=== PATIENT | male | born 1955 | race American Indian/Alaskan Native ===

== ENCOUNTER 2016-04-06 13:03 | Outpatient (RCR) | payer MEDICARE ==
[~2016-04-06 13:03] MED LIST: ACET500C4 PO; ACHD5005 PO; ASP81CT PO; ASP81TEC PO; HCT25T PO; HYDR-34 PO; INDO25CA PO; LEVO500T78 PO; LNZ600T PO; LSNP20T PO; METO25TA PO; ONDA-43 PO; PNT40TEC PO; PROB500T8 PO; TRM50T PO
--- OUTSIDE RECORDS SUMMARY | 2016-04-06 13:06 | XMS REPORT | Continuity of Care Document ---
Author Author [facility] Organization [facility] Address Unknown Phone Unavailable Support Name Relationship Address Phone CAITY BRANDON Caregiver [address] [place] [address] SAMARIA SCHOFIELD MD Caregiver [address] [place] [address] JENNI HAMPTONE Next Of Kin [address] [place], [place] [id number] Insurance Providers Payer Name Policy Number Subscriber Name Relationship Wps Medicare [id number] Jevon Hampton 18 Self / Same As Patient Self Pay Pending [facility] Apprv [id number] Jevon Hampton 18 Self / Same As Patient Advance Directives Directive Response Recorded Date/Time Advance Directives No 08/03/12 4:38pm Health Care Power of Turning And Beading Machine Operator No 08/03/12 4:38pm Organ Donor No 08/03/12 4:38pm Problems No known problems or medical conditions. Medications Medication Dose Route Sig Days/Qty Instructions Order Date Discontinued Date Status Metoprolol Succinate 25 Mg PO TWICE A DAY 10/31/10 05/01/12 Discontinued Indomethacin 50 Mg PO THREE TIMES A DAY PRN 10/31/10 05/01/12 Discontinued Hydrochlorothiazide 1 Each PO DAILY 10/31/10 05/01/12 Discontinued Aspirin 81 Mg PO DAILY 03/03/11 05/01/12 Discontinued Aspirin 81 Mg PO DAILY 05/01/12 Active Lisinopril 20 Mg PO DAILY 05/01/12 Active Probenecid 500 Mg PO DAILY 05/14/12 Active Pantoprazole Sod 40 Mg PO DAILY 05/14/12 07/04/12 Discontinued Acetaminophen 500 Mg PO NEEDED FOR PAIN 07/04/12 Active Ondansetron 8 Mg PO NEEDED 07/04/12 Active Levofloxacin 500 Mg PO DAILY 07/04/12 07/20/12 Discontinued Linezolid 600 Mg PO TWICE A DAY 07/17/12 07/20/12 Discontinued Acetaminophen/Hydrocodone Bitart 1 - 2 Tab PO Q4-6 PRN 07/20/12 Active Tramadol HCl 50 Mg PO EVERY 4HRS PRN 07/20/12 Active Social History Social History Problem Response Recorded Date/Time Alcohol Use Denies Use 07/17/2012 1:35pm Recreational Drug Use No 07/17/2012 1:35pm Recent Foreign Travel No 07/17/2012 1:35pm Recent Infectious Disease Exposure No 07/17/2012 1:35pm Hospitalization with Isolation Denies 07/20/2012 11:04am Sexually Transmitted Disease No 07/17/2012 1:35pm Hospital Discharge Instructions No hospital discharge instructions. Plan of Care No plan of care. Functional Status No functional status results. Allergies, Adverse Reactions, Alerts Allergen Type Severity Reaction Status Last Updated Allopurinol Adverse Reaction Active 05/01/12 indomethacin ([id number]) Allergy HIVES Active 07/04/12 Immunizations No immunization records. Vital Signs No known vital signs results. Results Laboratory Results Test Name Result Units Flags Reference Collection Date/Time Result Date/ Time Comments White Blood Count 5.0 10^3/uL 4.3-11.0 09/24/2014 10:02am 09/24/2014 10 :08am Red Blood Count 4.59 10^6/uL 4.35-5.85 09/24/2014 10:02am 09/24/2014 10 :08am Hemoglobin 14.6 G/DL 13.3-17.7 09/24/2014 10:02am 09/24/2014 10:08am Hematocrit 43 % 40-54 09/24/2014 10:02am 09/24/2014 10:08am Mean Corpuscular Volume 94 FL 80-99 09/24/2014 10:02am 09/24/2014 10: 08am Mean Corpuscular Hemoglobin 32 PG 25-34 09/24/2014 10:02am 09/24/2014 10:08am Mean Corpuscular Hemoglobin Concent 34 G/DL 32-36 09/24/2014 10:02am 10:08am Red Cell Distribution Width 13.3 % 10.0-14.5 09/24/2014 10:02am 2014 10:08am Platelet Count 200 10^3/uL 130-400 09/24/2014 10:0209/24/2014 10: 08am Mean Platelet Volume 9.9 FL 7.4-10.4 09/24/2014 10:0209/24/2014 10: 08am Neutrophils (%) (Auto) 52 % 42-75 09/24/2014 10:02am 09/24/2014 10: 08am Lymphocytes (%) (Auto) 36 % 12-44 09/24/2014 10:02am 09/24/2014 10: 08am Monocytes (%) (Auto) 10 % 0-12 09/24/2014 10:02am 09/24/2014 10:08am Eosinophils (%) (Auto) 2 % 0-10 09/24/2014 10:02am 09/24/2014 10:08am Basophils (%) (Auto) 1 % 0-10 09/24/2014 10:am 09/24/2014 10:08am Neutrophils # (Auto) 2.6 X 10^3 1.8-7.8 09/24/2014 10:02am 09/24/2014 10:08am Lymphocytes # (Auto) 1.8 X 10^3 1.0-4.0 09/24/2014 10:02am 09/24/2014 10:08am Monocytes # (Auto) 0.5 X 10^3 0.0-1.0 09/24/2014 10:02am 09/24/2014 10: 08am Eosinophils # (Auto) 0.1 10^3/uL 0.0-0.3 09/24/2014 10:02am 09/24/2014 10:08am Basophils # (Auto) 0.0 10^3/uL 0.0-0.1 09/24/2014 10:02am 09/24/2014 10 :08am Erythrocyte Sedimentation Rate 29 MM/HR 0-30 09/24/2014 10:022014 10:51am Sodium Level 138 MMOL/L 135-145 09/24/2014 10:0209/24/2014 10:39am Potassium Level 4.2 MMOL/L 3.6-5.0 09/24/2014 10:02am 09/24/2014 10: 39am Chloride Level 106 MMOL/L 98-107 09/24/2014 10:0209/24/2014 10:39am Carbon Dioxide Level 21 MMOL/L 21-32 09/24/2014 10:0209/24/2014 10: 39am Blood Urea Nitrogen 11 MG/DL 7-18 09/24/2014 10:0209/24/2014 10: 39am Creatinine 1.33 MG/DL H 0.60-1.30 09/24/2014 10:02am 09/24/2014 10:39am BUN/Creatinine Ratio 8 09/24/2014 10:02am 09/24/2014 10:39am Estimat Glomerular Filtration Rate 55 09/24/2014 10:022014 10:39am GFR INTERPRETIVE DATA UNITS FOR ESTIMATED GFR (eGFR): mL/min/1.73 M2 REFERENCE RANGE FOR ESTIMATED GFR (eGFR) eGFR NORMAL eGFR >60 MODERATELY DECREASED eGFR 30-59 SEVERLY DECREASED eGFR 15-29 KIDNEY FAILURE <15 (OR DIALYSIS) Glucose Level 126 MG/DL H 70-105 09/24/2014 10:02am 09/24/2014 10:39am Calcium Level 9.6 MG/DL 8.5-10.1 09/24/2014 10:0209/24/2014 10:39am Total Bilirubin 1.0 MG/DL 0.1-1.0 09/24/2014 10:02am 09/24/2014 10: 39am Alkaline Phosphatase 72 U/L 40-136 09/24/2014 10:02am 09/24/2014 10: 39am Aspartate Amino Transf (AST/SGOT) 44 U/L H 5-34 09/24/2014 10:02am 2014 10:39am Alanine Aminotransferase (ALT/SGPT) 34 U/L 0-55 09/24/2014 10:0207/2014 10:39am Lactate Dehydrogenase 189 U/L 125-220 09/24/2014 10:02am 09/24/2014 10: 39am Total Protein 7.4 G/DL 6.4-8.2 09/24/2014 10:0209/24/2014 10:39am Albumin 4.1 G/DL 3.2-4.5 09/24/2014 10:02am 09/24/2014 10:39am Procedures No known history of procedures. Encounters Encounter Location Date/Time Discharged Recurring Via [facility] 09/24/14 9:41am
[2016-04-06 13:27] LABS: BASOPHILS % (AUTO) 0 % (0-10); EOSINOPHILS # (AUTO) 0.2 10^3/uL (0.0-0.3); EOSINOPHILS % (AUTO) 3 % (0-10); LYMPHOCYTES # (AUTO) 2.2 X 10^3 (1.0-4.0); LYMPHOCYTES % (AUTO) 38 % (12-44); MEAN CORPUSCULAR HEMOGLOBIN 32 PG (25-34); MEAN CORPUSCULAR HGB CONC 34 G/DL (32-36); MEAN CORPUSCULAR VOLUME 95 FL (80-99); MEAN PLATELET VOLUME 9.8 FL (7.4-10.4); MONOCYTES # (AUTO) 0.6 X 10^3 (0.0-1.0); MONOCYTES % (AUTO) 10 % (0-12); NEUTROPHILS # (AUTO) 2.8 X 10^3 (1.8-7.8); NEUTROPHILS % (AUTO) 49 % (42-75); PLATELET COUNT 200 10^3/uL (130-400); RED BLOOD COUNT 4.57 10^6/uL (4.35-5.85); WHITE BLOOD COUNT 5.8 10^3/uL (4.3-11.0)
[2016-04-06 13:58] LABS: ERYTHROCYTE SEDIMENTATION RATE 35 MM/HR (0-30)
[2016-04-06 14:00] LABS: ALANINE AMINOTRANSFERASE 37 U/L (0-55); ALBUMIN 3.9 G/DL (3.2-4.5); ANION GAP 8 MMOL/L (5-14); ASPARTATE AMINO TRANSFERASE 30 U/L (5-34); BILIRUBIN,TOTAL 0.4 MG/DL (0.1-1.0); BLOOD UREA NITROGEN 11 MG/DL (7-18); BUN/CREATININE RATIO 9; CALCIUM 9.4 MG/DL (8.5-10.1); CARBON DIOXIDE 26 MMOL/L (21-32); CHLORIDE 107 MMOL/L (98-107); GFR ESTIMATED > 60; GLUCOSE 114 MG/DL (70-105); LACTATE DEHYDROGENASE 208 U/L (125-220); POTASSIUM 5.2 MMOL/L (3.6-5.0); SODIUM 141 MMOL/L (135-145); TOTAL PROTEIN 7.2 G/DL (6.4-8.2)
== END 2016-07-05 | disposition home or self-care (01) ==
LOC: ONC 13:03
PROVIDERS: ATTEND Internal Medicine Hematology & Oncology
DX: C81.90 Hodgkin lymphoma, unspecified, unspecified site (principal); Z79.899 Other long term (current) drug therapy
CPT/HCPCS: 36415; 80053; 83615; 85025; 85652; 99213

== ENCOUNTER → 2016-07-21 | Outpatient (CLI) | payer MEDICARE ==
--- OUTSIDE RECORDS SUMMARY | 2016-07-21 09:11 | XMS REPORT | Continuity of Care Document ---
Author Author [facility] Organization [facility] Address Unknown Phone Unavailable Support Name Relationship Address Phone CAITY BRANDON Caregiver [address] [place] [address] SAMARIA SCHOFIELD MD Caregiver [address] [place] [address] JENNI HAMPTONE Next Of Kin [address] [place], [place] [id number] Insurance Providers Payer Name Policy Number Subscriber Name Relationship Wps Medicare [id number] Jevon Hampton 18 Self / Same As Patient Self Pay Pending [facility] Apprv [id number] Jevon Hampton 18 Self / Same As Patient Advance Directives Directive Response Recorded Date/Time Advance Directives No 08/03/12 4:38pm Health Care Power of Piano Mover No 08/03/12 4:38pm Organ Donor No 08/03/12 [...] Updated Allopurinol Adverse Reaction Active 05/01/12 indomethacin ([id number]) Allergy HIVES Active 07/04/12 Immunizations No immunization [...] Encounters Encounter Location Date/Time Discharged Recurring Via [facility] 09/24/14 9:41am
[2016-07-21 10:10] LABS: ALANINE AMINOTRANSFERASE 34 U/L (0-55); ANION GAP 10 MMOL/L (5-14); ASPARTATE AMINO TRANSFERASE 29 U/L (5-34); BILIRUBIN,TOTAL 0.6 MG/DL (0.1-1.0); BLOOD UREA NITROGEN 14 MG/DL (7-18); BUN/CREATININE RATIO 12; CALCIUM 9.2 MG/DL (8.5-10.1); CARBON DIOXIDE 24 MMOL/L (21-32); CHLORIDE 106 MMOL/L (98-107); CHOLESTEROL 171 MG/DL (< 200); CREATININE SERUM 1.17 MG/DL (0.60-1.30); DIRECT LDL 99 MG/DL (1-129); GFR ESTIMATED > 60; GLUCOSE 114 MG/DL (70-105); POTASSIUM 4.1 MMOL/L (3.6-5.0); SODIUM 140 MMOL/L (135-145); TOTAL PROTEIN 7.2 G/DL (6.4-8.2); TRIGLYCERIDES 304 MG/DL (<150); VLDL CHOLESTEROL 61 MG/DL (5-40)
== END ==
LOC: LAB 09:07
PROVIDERS: ATTEND Internal Medicine Cardiovascular Disease
DX: R07.9 Chest pain, unspecified (principal); I10 Essential (primary) hypertension; R06.02 Shortness of breath; Z82.49 Family history of ischemic heart disease and other diseases of the circulatory system
CPT/HCPCS: 36415; 80053; 80061

== ENCOUNTER → 2016-07-24 | Outpatient (CLI) | payer MEDICARE, OTHER ==
--- OUTSIDE RECORDS SUMMARY | 2016-07-24 13:37 | XMS REPORT | Continuity of Care Document ---
Author Author [facility] Organization [facility] Address Unknown Phone Unavailable Support Name Relationship Address Phone CAITY BRANDON Caregiver [address] [place] [address] SAMARIA SCHOFIELD MD Caregiver [address] [place] [address] JENNI HAMPTONE Next Of Kin [address] [place], [place] [id number] Insurance Providers Payer Name Policy Number Subscriber Name Relationship Wps Medicare [id number] Jevon Hampton 18 Self / Same As Patient Self Pay Pending [facility] Apprv [id number] Jevon Hampton 18 Self / Same As Patient Advance Directives Directive Response Recorded Date/Time Advance Directives No 08/03/12 4:38pm Health Care Power of Junior Data Analyst No 08/03/12 4:38pm Organ Donor No 08/03/12 [...] Updated Allopurinol Adverse Reaction Active 05/01/12 indomethacin ([id number]) Allergy HIVES Active 07/04/12 Immunizations No immunization [...] Encounters Encounter Location Date/Time Discharged Recurring Via [facility] 09/24/14 9:41am
--- NOTE | 2016-07-26 08:57 | ECHOCARDIOGRAPHY REPORT ---
PROCEDURE PHYSICIAN: ROLANDA POLLOCK DATE OF PROCEDURE: 07/24/2016 TWO DIMENSIONAL ECHOCARDIOGRAM REPORT PRIMARY PHYSICIAN: OTHER PHYSICIAN: REFERRING PHYSICIAN: Dr. Trudy Neely ORDERING PHYSICIAN: INDICATION FOR THE PROCEDURE: MEASUREMENTS DERIVED VALUES LV DIAMETER (LAX) NORMALS NORMALS Diastolic 5.1 (3.6-5.2) Eject. Fract. 60% (60%+/-6%) Systolic (2.3-3.9) Diastolic Vol. % Shortening (0.22-0.42) Systolic Vol. Aortic Root IVS THICKNESS Diastolic 1. (0.6-1.1) LVPW THICKNESS Diastolic 1. (0.6-1.1) LA DIAMETER Systolic 4.9 (2.1-3.7) FINDINGS: 1. Technical quality is good. 2. The left ventricle is normal in size with normal contractility. Systolic function appeared to be normal. Estimated ejection fraction 60%. 3. The left atrium is dilated. No clot or thrombus were seen within the left atrium. 4. The right atrium and right ventricle are normal in size. No clot or thrombus were seen within the right side. 5. Mitral valve is normal in morphology with mild mitral regurgitation noted by color Doppler flow. Doppler across the mitral valve showed equalization of E:A, which is suggestive diastolic dysfunction. 6. Aortic valve is trileaflet with normal opening and closing pattern. No significant aortic stenosis or regurgitation was seen. 7. Tricuspid valve is normal in morphology with mild tricuspid regurgitation noted by color Doppler flow. Doppler across tricuspid valve estimated pulmonary artery pressure of 37+ right atrial pressure. 8. Pulmonic valve is functioning normally. 9. No pericardial effusion. CONCLUSION: 1. Normal left ventricular size and systolic function. Estimated ejection fraction 60%. Diastolic dysfunction is suggested by Doppler. 2. Left atrial dilatation. 3. Mild mitral regurgitation. Mild tricuspid regurgitation. 4. Pulmonary hypertension with estimated pulmonary artery pressure of 45 mmHg Job ID: [id number] Dictated Date: 07/25/2016 17:02:54 Instrument Setter Date: 07/26/2016 08:53:16 / abdiel
== END ==
LOC: CARD 13:34
PROVIDERS: ATTEND Internal Medicine Cardiovascular Disease
DX: I10 Essential (primary) hypertension (principal); R07.9 Chest pain, unspecified; R06.02 Shortness of breath; Z82.49 Family history of ischemic heart disease and other diseases of the circulatory system
CPT/HCPCS: 93306

== ENCOUNTER → 2016-08-09 | Outpatient (CLI) | payer MEDICARE, OTHER ==
[~2016-08-09] VITALS: Ht 175.3 cm; Wt 103.4 kg
[~2016-08-09] MED LIST changes: +REGADENOSON 0.4 MG/5 ML SYR (LEXISCAN) IV ONE
--- OUTSIDE RECORDS SUMMARY | 2016-08-09 08:03 | XMS REPORT | Continuity of Care Document ---
Author Author [facility] Organization [facility] Address Unknown Phone Unavailable Support Name Relationship Address Phone CAITY BRANDON Caregiver [address] [place] [address] SAMARIA SCHOFIELD MD Caregiver [address] [place] [address] JENNI HAMPTONE Next Of Kin [address] [place], [place] [phone] Insurance Providers Payer Name Policy Number Subscriber Name Relationship Wps Medicare [id number] Jevon Hampton 18 Self / Same As Patient Self Pay Pending [facility] Apprv [id number] Jevon Hampton 18 Self / Same As Patient Advance Directives Directive Response Recorded Date/Time Advance Directives No 08/03/12 4:38pm Health Care Power of Manager Sustainability No 08/03/12 4:38pm Organ Donor No 08/03/12 [...] Updated Allopurinol Adverse Reaction Active 05/01/12 indomethacin ([id number]) Allergy HIVES Active 07/04/12 Immunizations No immunization [...] Encounters Encounter Location Date/Time Discharged Recurring Via [facility] 09/24/14 9:41am
[2016-08-09] MEDS: CATHETER FLUSH 10 ML SYR IV PRN ×2 (08:11→09:36)
[2016-08-09 09:34] VITALS: BP 185/99
--- NOTE | 2016-08-10 07:39 | STRESS TEST ---
PROCEDURE PHYSICIAN: ROLANDA POLLOCK DATE OF PROCEDURE: 08/09/2016 LEXISCAN MYOVIEW STRESS TEST REPORT: REFERRING PHYSICIAN: Dr. Trudy Neely. INDICATION: Chest pain. BASELINE HEART RATE: 74 BASELINE BLOOD PRESSURE: 185/99 BASELINE EKG: Sinus rhythm with no ischemic changes. IN SUMMARY: The patient was injected with 10.99 mCi of technetium 99 Myoview and the resting images were obtained. Then the patient received 0.4 mg of Lexiscan followed by 29.1 mCi of technetium 99 Myoview. Throughout the test, there were no EKG changes. The resting and stress images were reviewed and compared in the short axis, horizontal long axis, and vertical long axis views. Review of the images showed good radiotracer uptake with no ischemia or infarction on SPECT images. SSS is 1, SDS 1, TID value 0.88. On the gated images, the left ventricle appeared to be normal size with normal contractility. Calculated ejection fraction 52%. IN CONCLUSION: 1. The patient tolerated Lexiscan well. 2. No ischemia or infarction on SPECT images. 3. Normal left ventricular size with normal contractility. Calculated ejection fraction 52%. Job ID: [id number] Dictated Date: 08/09/2016 18:19:29 Sales Administration Specialist Date: 08/10/2016 07:37:04 / ac
== END ==
LOC: CARD 07:47
PROVIDERS: ATTEND Internal Medicine Cardiovascular Disease
DX: R07.9 Chest pain, unspecified (principal); I10 Essential (primary) hypertension; R06.02 Shortness of breath; Z82.49 Family history of ischemic heart disease and other diseases of the circulatory system
CPT/HCPCS: 78452; 93017

== ENCOUNTER 2016-10-12 13:08 | Outpatient (RCR) | payer MEDICARE ==
[~2016-10-12 13:08] MED LIST changes: -REGADENOSON 0.4 MG/5 ML SYR (LEXISCAN) IV ONE
[2016-10-12 13:34] LABS: BASOPHILS % (AUTO) 1 % (0-10); EOSINOPHILS # (AUTO) 0.1 10^3/uL (0.0-0.3); EOSINOPHILS % (AUTO) 1 % (0-10); LYMPHOCYTES % (AUTO) 32 % (12-44); MEAN CORPUSCULAR HEMOGLOBIN 32 PG (25-34); MEAN CORPUSCULAR HGB CONC 34 G/DL (32-36); MEAN CORPUSCULAR VOLUME 95 FL (80-99); MEAN PLATELET VOLUME 9.4 FL (7.4-10.4); MONOCYTES # (AUTO) 0.7 X 10^3 (0.0-1.0); MONOCYTES % (AUTO) 11 % (0-12); NEUTROPHILS # (AUTO) 3.4 X 10^3 (1.8-7.8); NEUTROPHILS % (AUTO) 55 % (42-75); PLATELET COUNT 229 10^3/uL (130-400); RED BLOOD COUNT 4.39 10^6/uL (4.35-5.85); RED CELL DISTRIBUTION WIDTH 13.8 % (10.0-14.5); WHITE BLOOD COUNT 6.2 10^3/uL (4.3-11.0)
[2016-10-12 14:26] LABS: ALANINE AMINOTRANSFERASE 26 U/L (0-55); ALBUMIN 3.8 G/DL (3.2-4.5); ANION GAP 9 MMOL/L (5-14); ASPARTATE AMINO TRANSFERASE 25 U/L (5-34); BILIRUBIN,TOTAL 0.4 MG/DL (0.1-1.0); BLOOD UREA NITROGEN 14 MG/DL (7-18); BUN/CREATININE RATIO 12; CALCIUM 9.1 MG/DL (8.5-10.1); CARBON DIOXIDE 25 MMOL/L (21-32); CHLORIDE 107 MMOL/L (98-107); CREATININE SERUM 1.13 MG/DL (0.60-1.30); GFR ESTIMATED > 60; GLUCOSE 159 MG/DL (70-105); LACTATE DEHYDROGENASE 209 U/L (125-220); POTASSIUM 4.7 MMOL/L (3.6-5.0); SODIUM 141 MMOL/L (135-145); TOTAL PROTEIN 7.1 G/DL (6.4-8.2)
== END 2017-01-10 | disposition home or self-care (01) ==
LOC: ONC 13:08
PROVIDERS: ATTEND Internal Medicine Hematology & Oncology
DX: C81.90 Hodgkin lymphoma, unspecified, unspecified site (principal); Z79.899 Other long term (current) drug therapy
CPT/HCPCS: 36415; 80053; 83615; 85025; 99213

== ENCOUNTER → 2017-01-09 | Outpatient (CLI) | payer MEDICARE ==
--- NOTE | 2017-01-09 12:06 | Diagnostic Imaging Report ---
EXAMINATION: Three views of the left knee. INDICATION: Left knee pain. FINDINGS: No fracture, dislocation, or radiopaque foreign body. There is ossification along the quadriceps insertion and patellar tendon origin, may relate to enthesopathy or prior tendinous injury. There is a small suprapatellar effusion. Minimal osteophyte formation is seen with no significant joint space loss. IMPRESSION: There is a small suprapatellar effusion suggested. No acute process. Dictated by: Dictated on workstation # [id number]
== END ==
LOC: RAD 09:46
PROVIDERS: ATTEND Family Medicine
DX: M25.462 Effusion, left knee (principal)
CPT/HCPCS: 73562

== ENCOUNTER 2017-04-16 13:28 | Outpatient (RCR) | payer MEDICARE ==
[2017-04-16 13:46] LABS: BASOPHILS % (AUTO) 1 % (0-10); EOSINOPHILS # (AUTO) 0.1 10^3/uL (0.0-0.3); EOSINOPHILS % (AUTO) 2 % (0-10); HEMATOCRIT 44 % (40-54); HEMOGLOBIN 14.4 G/DL (13.3-17.7); LYMPHOCYTES % (AUTO) 39 % (12-44); MEAN CORPUSCULAR HEMOGLOBIN 32 PG (25-34); MEAN CORPUSCULAR HGB CONC 33 G/DL (32-36); MEAN CORPUSCULAR VOLUME 96 FL (80-99); MONOCYTES # (AUTO) 0.5 X 10^3 (0.0-1.0); MONOCYTES % (AUTO) 9 % (0-12); NEUTROPHILS # (AUTO) 2.6 X 10^3 (1.8-7.8); NEUTROPHILS % (AUTO) 50 % (42-75); PLATELET COUNT 186 10^3/uL (130-400); RED BLOOD COUNT 4.52 10^6/uL (4.35-5.85); RED CELL DISTRIBUTION WIDTH 13.3 % (10.0-14.5); WHITE BLOOD COUNT 5.2 10^3/uL (4.3-11.0)
[2017-04-16 14:08] LABS: ALANINE AMINOTRANSFERASE 39 U/L (0-55); ALBUMIN 3.9 GM/DL (3.2-4.5); ALKALINE PHOSPHATASE 108 U/L (40-136); BILIRUBIN,TOTAL 0.6 MG/DL (0.1-1.0); BUN/CREATININE RATIO 8; CALCIUM 9.3 MG/DL (8.5-10.1); CARBON DIOXIDE 27 MMOL/L (21-32); CHLORIDE 106 MMOL/L (98-107); CREATININE SERUM 1.19 MG/DL (0.60-1.30); GFR ESTIMATED > 60; GLUCOSE 134 MG/DL (70-105); POTASSIUM 4.2 MMOL/L (3.6-5.0); SODIUM 139 MMOL/L (135-145); TOTAL PROTEIN 7.6 GM/DL (6.4-8.2)
[2017-04-16 14:10] LABS: ERYTHROCYTE SEDIMENTATION RATE 38 MM/HR (0-30)
== END 2017-07-15 | disposition home or self-care (01) ==
LOC: ONC 13:28
PROVIDERS: ATTEND Internal Medicine Hematology & Oncology
DX: C81.90 Hodgkin lymphoma, unspecified, unspecified site (principal); Z79.899 Other long term (current) drug therapy
CPT/HCPCS: 36415; 80053; 83615; 85025; 85652; 99213

== ENCOUNTER → 2018-02-08 | Outpatient (CLI) | payer MEDICARE ==
--- NOTE | 2018-02-08 10:21 | Diagnostic Imaging Report ---
PROCEDURE: US Hepatic (Liver). TECHNIQUE: Multiple real-time grayscale images were obtained over the right upper quadrant in various projections. INDICATION: MATHUR. The liver is normal in size at 15 cm. There is increased echogenicity throughout the liver consistent with hepatic steatosis. No discrete liver mass is identified. The portal vein is patent and shows normal direction of flow. The gallbladder is without stones or sludge. No wall thickening or biliary duct dilatation seen. Pancreas is obscured. Right kidney is unremarkable. There is no ascites. IMPRESSION: Hepatic steatosis. No other significant abnormality is detected. Dictated by: Dictated on workstation # [id number]
== END ==
LOC: RAD 08:31
PROVIDERS: ATTEND Family Medicine
DX: K75.81 Nonalcoholic steatohepatitis (NASH) (principal)
CPT/HCPCS: 76705

== ENCOUNTER → 2018-03-28 | Outpatient (CLI) | payer MEDICARE, OTHER ==
[~2018-03-28] MED LIST changes: +CATHETER FLUSH 10 ML SYR IV PRN; +IOHEXOL 350 MG/ML 100 ML (OMNIPAQUE 350) VIAL IV ONE; +NS 250 ML (IVPB) BAG IV ONE; +RECEIVED CONTRAST (Hold Metformin) IV SCH
[2018-03-28 12:00] LABS: BUN/CREATININE RATIO 8; CREATININE SERUM 1.19 MG/DL (0.60-1.30); GFR ESTIMATED > 60
--- NOTE | 2018-03-28 13:06 | Diagnostic Imaging Report ---
PROCEDURE: CT abdomen and pelvis with and without contrast. TECHNIQUE: Precontrast acquisitions were acquired through the abdomen and pelvis. Multiple contiguous axial images were obtained through the abdomen and pelvis after the administration of intravenous contrast. INDICATION: Upper abdominal pain. Patient has history of Hodgkin's lymphoma. Correlation is made with prior CT from 01/13/2015. FINDINGS: The lung bases are clear apart from minimal scarring or atelectasis in the right lower lobe. The liver demonstrates diffuse low density consistent with hepatic steatosis. No discrete liver mass is identified apart from small low density in the left lobe, stable when compared to prior exam at 14 mm and suggestive of a cyst. The gallbladder is unremarkable. The pancreas and spleen are unremarkable. No adrenal mass is identified. Previously seen cortical renal density anterolaterally on the right has decreased in size suggestive of diminution of a cyst. There is a tiny cortical cyst in the posterior right lower lobe as well. Aorta is nonaneurysmal. No central retroperitoneal or mesenteric lymphadenopathy is seen. There is some colonic diverticulosis present but no evidence of acute diverticulitis. The appendix is unremarkable. There are mildly prominent fluid-filled small bowel loops in the left abdomen, nonspecific. No wall thickening is seen. No adjacent inflammatory stranding is identified. There is no free fluid or fluid collection in the abdomen. The partially filled urinary bladder is unremarkable. There is no pelvic lymphadenopathy identified. Bones appear to be markedly dense, similar to prior CT from 2015. IMPRESSION: 1. Hepatic steatosis. 2. Uncomplicated diverticulosis. 3. Diffuse osteosclerosis, similar to prior CT from 2015. 4. Mild nonspecific fluid-filled distention of small bowel left abdomen. This could be owing to a nonspecific enteritis. No other significant abnormality is seen. Dictated by: Dictated on workstation # [id number]
== END ==
LOC: RAD 11:01
PROVIDERS: ATTEND Nurse Practitioner Family
DX: K76.0 Fatty (change of) liver, not elsewhere classified (principal); K57.30 Diverticulosis of large intestine without perforation or abscess without bleeding; M85.80 Other specified disorders of bone density and structure, unspecified site; Z85.71 Personal history of Hodgkin lymphoma
CPT/HCPCS: 36415; 74178; 82565; 84520

== ENCOUNTER → 2018-04-22 | Outpatient (CLI) | payer MEDICARE, OTHER ==
[~2018-04-22] MED LIST changes: -CATHETER FLUSH 10 ML SYR IV PRN; -IOHEXOL 350 MG/ML 100 ML (OMNIPAQUE 350) VIAL IV ONE; -NS 250 ML (IVPB) BAG IV ONE; -RECEIVED CONTRAST (Hold Metformin) IV SCH
--- NOTE | 2018-04-22 09:04 | Diagnostic Imaging Report ---
PROCEDURE: US Gallbladder. TECHNIQUE: Multiple real-time grayscale images were obtained over the right upper quadrant in various projections. INDICATION: Right upper quadrant pain. FINDINGS: Liver has increased echogenicity. Gallbladder is clear with no stones or wall thickening. The common duct is not appreciably dilated. Pancreas is obscured by bowel gas. Right kidney measures 11.9 cm in length and appears normal. There is no ascites. IMPRESSION: Increased hepatic echogenicity most likely due to hepatic steatosis. Dictated by: Dictated on workstation # [id number]
== END ==
LOC: RAD 07:27
PROVIDERS: ATTEND Surgery
DX: R93.2 Abnormal findings on diagnostic imaging of liver and biliary tract (principal)
CPT/HCPCS: 76705

== ENCOUNTER 2018-04-29 10:45 | Outpatient (RCR) | payer MEDICARE ==
[2018-04-29 11:08] LABS: BASOPHILS % (AUTO) 1 % (0-10); EOSINOPHILS # (AUTO) 0.2 10^3/uL (0.0-0.3); EOSINOPHILS % (AUTO) 3 % (0-10); HEMATOCRIT 45 % (40-54); HEMOGLOBIN 14.9 G/DL (13.3-17.7); LYMPHOCYTES # (AUTO) 2.2 X 10^3 (1.0-4.0); LYMPHOCYTES % (AUTO) 42 % (12-44); MEAN CORPUSCULAR HEMOGLOBIN 32 PG (25-34); MEAN CORPUSCULAR HGB CONC 33 G/DL (32-36); MEAN CORPUSCULAR VOLUME 97 FL (80-99); MEAN PLATELET VOLUME 9.7 FL (7.4-10.4); MONOCYTES # (AUTO) 0.6 X 10^3 (0.0-1.0); MONOCYTES % (AUTO) 11 % (0-12); NEUTROPHILS # (AUTO) 2.3 X 10^3 (1.8-7.8); NEUTROPHILS % (AUTO) 44 % (42-75); PLATELET COUNT 237 10^3/uL (130-400); RED BLOOD COUNT 4.65 10^6/uL (4.35-5.85); RED CELL DISTRIBUTION WIDTH 14.3 % (10.0-14.5); WHITE BLOOD COUNT 5.3 10^3/uL (4.3-11.0)
[2018-04-29 11:29] LABS: ALBUMIN 4.2 GM/DL (3.2-4.5); BILIRUBIN,TOTAL 0.5 MG/DL (0.1-1.0); CALCIUM 10.2 MG/DL (8.5-10.1); CREATININE SERUM 1.24 MG/DL (0.60-1.30); ERYTHROCYTE SEDIMENTATION RATE 7 MM/HR (0-30); POTASSIUM 4.3 MMOL/L (3.6-5.0); TOTAL PROTEIN 8.2 GM/DL (6.4-8.2)
== END 2018-05-30 16:42 | disposition still patient (30) ==
LOC: ONC 10:45
PROVIDERS: ATTEND Internal Medicine Hematology & Oncology
DX: C81.90 Hodgkin lymphoma, unspecified, unspecified site (principal); Z79.899 Other long term (current) drug therapy; Z92.21 Personal history of antineoplastic chemotherapy; Z92.3 Personal history of irradiation
CPT/HCPCS: 36415; 80053; 83615; 85025; 85652; 99213

== ENCOUNTER → 2018-05-06 | Outpatient (CLI) | payer MEDICARE, OTHER ==
[~2018-05-06] MED LIST changes: +CATHETER FLUSH 10 ML SYR IV PRN
--- NOTE | 2018-05-06 14:48 | Diagnostic Imaging Report ---
Indication: Right upper quadrant pain. Patient was a administered 4.5 mCi technetium 99m Choletec intravenously and imaging over the abdomen was performed. Next, at one hour patient ingested one can of Ensure and gallbladder ejection fraction was calculated. There is homogeneous uptake of activity by the liver. Prompt excretion of activity to the gallbladder and common duct is seen. Normal passage of activity into the small bowel. Gallbladder ejection fraction is abnormally low at 6%. Normal values are 33 or greater. Impression: 1. No evidence of cystic duct or common bile duct obstruction. 2. Low gallbladder ejection fraction of 6%. Dictated by: Dictated on workstation # [id number]
== END ==
LOC: CARD 10:19
PROVIDERS: ATTEND Surgery
DX: R10.11 Right upper quadrant pain (principal)
CPT/HCPCS: 78227

== ENCOUNTER → 2018-05-27 | Outpatient (CLI) | payer MEDICARE ==
[~2018-05-27] MED LIST changes: -CATHETER FLUSH 10 ML SYR IV PRN
== END | disposition home or self-care (01) ==
LOC: PREOP 05:35
PROVIDERS: ATTEND Surgery
DX: Z01.818 Encounter for other preprocedural examination (principal)

== ENCOUNTER → 2019-04-28 | Outpatient (CLI) | payer MEDICARE ==
[2019-04-28 13:29] LABS: BASOPHILS % (AUTO) 1 % (0-10); EOSINOPHILS # (AUTO) 0.2 10^3/uL (0.0-0.3); EOSINOPHILS % (AUTO) 3 % (0-10); HEMATOCRIT 45 % (40-54); HEMOGLOBIN 14.8 G/DL (13.3-17.7); LYMPHOCYTES # (AUTO) 2.2 X 10^3 (1.0-4.0); LYMPHOCYTES % (AUTO) 42 % (12-44); MEAN CORPUSCULAR HEMOGLOBIN 32 PG (25-34); MEAN CORPUSCULAR HGB CONC 33 G/DL (32-36); MEAN CORPUSCULAR VOLUME 96 FL (80-99); MONOCYTES # (AUTO) 0.6 X 10^3 (0.0-1.0); MONOCYTES % (AUTO) 11 % (0-12); NEUTROPHILS # (AUTO) 2.3 X 10^3 (1.8-7.8); NEUTROPHILS % (AUTO) 44 % (42-75); PLATELET COUNT 222 10^3/uL (130-400); RED CELL DISTRIBUTION WIDTH 14.1 % (10.0-14.5); WHITE BLOOD COUNT 5.3 10^3/uL (4.3-11.0)
[2019-04-28 13:48] LABS: ALANINE AMINOTRANSFERASE 35 U/L (0-55); ALKALINE PHOSPHATASE 121 U/L (40-136); BILIRUBIN,TOTAL 0.4 MG/DL (0.1-1.0); BUN/CREATININE RATIO 11; CALCIUM 9.6 MG/DL (8.5-10.1); CARBON DIOXIDE 25 MMOL/L (21-32); CHLORIDE 105 MMOL/L (98-107); CREATININE SERUM 1.14 MG/DL (0.60-1.30); GFR ESTIMATED > 60; GLUCOSE 135 MG/DL (70-105); POTASSIUM 4.5 MMOL/L (3.6-5.0); SODIUM 139 MMOL/L (135-145); TOTAL PROTEIN 7.9 GM/DL (6.4-8.2)
== END ==
LOC: ONC 12:55
PROVIDERS: ATTEND Internal Medicine Hematology & Oncology
DX: C81.14 Nodular sclerosis Hodgkin lymphoma, lymph nodes of axilla and upper limb (principal); B40.2 Pulmonary blastomycosis, unspecified; I12.9 Hypertensive chronic kidney disease with stage 1 through stage 4 chronic kidney disease, or unspecified chronic kidney disease; N18.3 Chronic kidney disease, stage 3 (moderate); M10.9 Gout, unspecified; E66.9 Obesity, unspecified; Z68.33 Body mass index [BMI] 33.0-33.9, adult; Z92.21 Personal history of antineoplastic chemotherapy; Z79.899 Other long term (current) drug therapy
CPT/HCPCS: 36415; 80053; 83615; 85025; 99213

== ENCOUNTER → 2020-07-14 | Outpatient (CLI) | payer MEDICARE ==
[2020-07-14 13:17] LABS: BASOPHILS % (AUTO) 1 % (0-10); EOSINOPHILS # (AUTO) 0.1 10^3/uL (0.0-0.3); EOSINOPHILS % (AUTO) 2 % (0-10); HEMATOCRIT 45 % (40-54); HEMOGLOBIN 14.8 g/dL (13.3-17.7); LYMPHOCYTES # (AUTO) 2.3 10^3/uL (1.0-4.0); LYMPHOCYTES % (AUTO) 44 % (12-44); MEAN CORPUSCULAR HEMOGLOBIN 33 pg (25-34); MEAN CORPUSCULAR HGB CONC 33 g/dL (32-36); MEAN CORPUSCULAR VOLUME 99 fL (80-99); MEAN PLATELET VOLUME 9.6 fL (9.0-12.2); MONOCYTES # (AUTO) 0.4 10^3/uL (0.0-1.0); MONOCYTES % (AUTO) 8 % (0-12); NEUTROPHILS # (AUTO) 2.3 10^3/uL (1.8-7.8); NEUTROPHILS % (AUTO) 45 % (42-75); PLATELET COUNT 209 10^3/uL (130-400); WHITE BLOOD COUNT 5.2 10^3/uL (4.3-11.0)
[2020-07-14 13:36] LABS: ALANINE AMINOTRANSFERASE 35 U/L (0-55); ALKALINE PHOSPHATASE 145 U/L (40-136); BILIRUBIN,TOTAL 0.5 MG/DL (0.1-1.0); BUN/CREATININE RATIO 9; CALCIUM 9.5 MG/DL (8.5-10.1); CARBON DIOXIDE 24 MMOL/L (21-32); CHLORIDE 105 MMOL/L (98-107); CREATININE SERUM 1.08 MG/DL (0.60-1.30); GFR ESTIMATED > 60; GLUCOSE 116 MG/DL (70-105); POTASSIUM 4.6 MMOL/L (3.6-5.0); SODIUM 138 MMOL/L (135-145); TOTAL PROTEIN 8.1 GM/DL (6.4-8.2)
[2020-07-14 14:37] LABS: ERYTHROCYTE SEDIMENTATION RATE 60 MM/HR (0-30)
== END ==
LOC: ONC 12:54
PROVIDERS: ATTEND Internal Medicine Hematology & Oncology
DX: C81.14 Nodular sclerosis Hodgkin lymphoma, lymph nodes of axilla and upper limb (principal); B40.2 Pulmonary blastomycosis, unspecified; Z92.21 Personal history of antineoplastic chemotherapy
CPT/HCPCS: 80053; 83615; 85025; 85652; G0463; 99213

== ENCOUNTER → 2020-10-14 | Outpatient (CLI) | payer MEDICARE ==
[2020-10-14 13:07] LABS: BASOPHILS % (AUTO) 1 % (0-10); EOSINOPHILS # (AUTO) 0.1 10^3/uL (0.0-0.3); EOSINOPHILS % (AUTO) 2 % (0-10); HEMATOCRIT 45 % (40-54); HEMOGLOBIN 14.8 g/dL (13.3-17.7); LYMPHOCYTES # (AUTO) 2.1 10^3/uL (1.0-4.0); LYMPHOCYTES % (AUTO) 40 % (12-44); MEAN CORPUSCULAR HEMOGLOBIN 33 pg (25-34); MEAN CORPUSCULAR HGB CONC 33 g/dL (32-36); MEAN CORPUSCULAR VOLUME 100 fL (80-99); MONOCYTES # (AUTO) 0.5 10^3/uL (0.0-1.0); MONOCYTES % (AUTO) 10 % (0-12); NEUTROPHILS # (AUTO) 2.5 10^3/uL (1.8-7.8); NEUTROPHILS % (AUTO) 48 % (42-75); PLATELET COUNT 193 10^3/uL (130-400); WHITE BLOOD COUNT 5.2 10^3/uL (4.3-11.0)
[2020-10-14 13:24] LABS: ALKALINE PHOSPHATASE 136 U/L (40-136); BILIRUBIN,TOTAL 0.7 MG/DL (0.1-1.0); BUN/CREATININE RATIO 8; CALCIUM 9.2 MG/DL (8.5-10.1); CARBON DIOXIDE 22 MMOL/L (21-32); CHLORIDE 105 MMOL/L (98-107); GFR ESTIMATED > 60; GLUCOSE 144 MG/DL (70-105); POTASSIUM 4.2 MMOL/L (3.6-5.0); SODIUM 139 MMOL/L (135-145); TOTAL PROTEIN 7.9 GM/DL (6.4-8.2)
[2020-10-14 13:32] LABS: ERYTHROCYTE SEDIMENTATION RATE 67 MM/HR (0-30)
[2020-10-14 13:55] LABS: ALANINE AMINOTRANSFERASE 29 U/L (0-55)
== END ==
LOC: ONC 11:59
PROVIDERS: ATTEND Internal Medicine Hematology & Oncology
DX: C81.14 Nodular sclerosis Hodgkin lymphoma, lymph nodes of axilla and upper limb (principal)
CPT/HCPCS: 80053; 83615; 85025; 85652